=== PATIENT | male | born 1985 | race Caucasian/White ===

== ENCOUNTER 2017-06-04 04:20 | Emergency (ER) | payer SELFPAY ==
[2017-06-04] MEDS ORDERED: IPRATROPIUM/ALBUTEROL 3 ML NEB INH STA (04:27)
[2017-06-04] MEDS ORDERED: predniSONE 20 MG TABLET PO STA (04:28)
--- NOTE | 2017-06-04 04:33 | ED Physician Documentation ---
PD HPI DYSPNEA - Stated complaint Stated Complaint: SOA - Chief complaint Chief Complaint: Resp - History obtained from History obtained from: Patient - History of Present Illness Timing - onset: How many days ago (3) Timing - onset during: Rest, Light activity Timing - details: Gradual onset, Still present Inciting event(s): Out of meds Improved by: O2, Inhaler/neb Associated symptoms: Wheezing. No: Fever, Cough Similar symptoms before: Work up / diagnostics Recently seen: Not recently seen - Additional information Additional information: Patient is a 31 year old male with a history of asthma who is presenting to the emergency department for shortness of breath and wheezing. patient reports that he hadn't had to use his inhaler much the last couple of years but over the last week he has been using it every day. 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 Patient tried some albuterol nebulizers with little relief. Review of Systems Constitutional: denies: Fever, Chills Eyes: reports: Reviewed and negative Ears: reports: Reviewed and negative Nose: denies: Rhinorrhea / runny nose, Congestion Cardiac: denies: Chest pain / pressure Respiratory: reports: Dyspnea, Wheezing. denies: Cough : reports: Reviewed and negative Skin: reports: Reviewed and negative Musculoskeletal: reports: Reviewed and negative Neurologic: reports: Reviewed and negative Immunocompromised: denies: Immunocompromised PD PAST MEDICAL HISTORY - Present Medications Home Medications: Ambulatory Orders Medication Instructions Recorded Confirmed Albuterol 2.5 mg INH Q4H PRN #30 neb 06/04/17 Albuterol Sulf [Ventolin Hfa 2 puffs INH Q4HR PRN #1 inhaler 06/04/17 Inhaler] Albuterol Sulfate [Proair Hfa 2 puffs IH Q3HR PRN 06/04/17 06/04/17 Inhaler] Mometasone/Formoterol [Dulera 100 2 puffs IH DAILY 06/04/17 06/04/17 Mcg/5 Mcg Inhaler] Omeprazole 20 mg PO DAILY 06/04/17 06/04/17 predniSONE [Prednisone] 40 mg PO DAILY 5 Days tablet 06/04/17 - Allergies Allergies/Adverse Reactions: Allergies Allergy/AdvReac Type Severity Reaction Status Date / Time No Known Drug Allergies Allergy Verified 06/04/17 04:26 PD ED PE NORMAL - Vitals Vital signs reviewed: Yes - General General: Alert and oriented X 3, Well developed/nourished - HEENT HEENT: Atraumatic, Moist mucous membranes - Neck Neck: Supple, no meningeal sign, No JVD - Cardiac Cardiac: RRR, No murmur - Abdomen Abdomen: Soft, Non distended - Derm Derm: Normal color, Warm and dry - Extremities Extremities: No deformity, No edema, No calf tenderness / cord - Neuro Neuro: Alert and oriented X 3, No motor deficit, Normal speech - Psych Psych: Normal mood PD ED PE EXPANDED - Respiratory Respiratory: Labored, Wheezing, Right upper lobe, Right middle lobe, Right lower lobe, Left upper lobe, Left lower lobe Results - Vitals Vitals: Vital Signs - 24 hr 06/04/17 06/04/17 06/04/17 04:20 04:51 05:20 Temperature 36.5 C Heart Rate 75 75 81 Respiratory 20 20 17 Rate Blood Pressure 135/93 H 114/85 H O2 Saturation 95 98 Oxygen O2 Source Room air PD MEDICAL DECISION MAKING - ED course Complexity details: reviewed old records, reviewed results, re-evaluated patient , considered differential, d/w patient ED course: Patient was seen and examined at bedside. Patient had bilateral wheezing but was not hypoxic. patient was treated with duonembs and prednisone. Upon re- evaluation patient was feeling better. Patient was given 3 nebs to go home with. patient required no further inpatient work up and was stable for discharge with outpatient follow up. Departure - Departure Disposition: Home, Self Care Clinical Impression: Asthma Condition: Good Instructions: Asthma Dc Follow-Up: primary,care provider [Other] - Within 3 Days Prescriptions: Albuterol Sulf [Ventolin Hfa Inhaler] 2 puffs INH Q4HR PRN #1 inhaler PRN Reason: Wheezing Albuterol 2.5 mg INH Q4H PRN #30 neb PRN Reason: Wheezing predniSONE [Prednisone] 40 mg PO DAILY 5 Days tablet Comments: Your symptoms today are being caused by an asthma exacerbation. You have been prescribed albuterol and steroids. You should try wearing masks at work if you are cleaning. If your attacks become more frequent you should follow up wiht your doctor. You may return to the emergency department at any time for new, worsening or uncontrollable symptoms. Forms: Activity restrictions
[2017-06-04] MEDS ORDERED: IPRATROPIUM/ALBUTEROL 3 ML NEB INH ONE (04:56)
[2017-06-04 05:21] VITALS: BP 114/85
[2017-06-04] MEDS ORDERED: ALBUTEROL NEB 2.5 MG/3 ML INH STA (05:27)
== END 2017-06-04 05:40 | disposition home or self-care (01) ==
LOC: ED 04:20
DX: J45.901 Unspecified asthma with (acute) exacerbation (principal)
CPT/HCPCS: 94640; 99283; J7512; J7613; J7620

== ENCOUNTER 2018-03-08 09:19 | Outpatient (CLI) | payer SELFPAY | END 2018-03-08 09:20 | disposition home or self-care (01) | LOC: LAB 09:19 | DX: Z02.81 Encounter for paternity testing (principal) ==

== ENCOUNTER 2020-09-22 14:51 | Emergency (ER) | payer OTHER ==
--- NOTE | 2020-09-22 15:39 | XRAY Report ---
PROCEDURE: Shoulder 2 View RT INDICATIONS: shoulder pain TECHNIQUE: 2 views of the shoulder were acquired. COMPARISON: None. FINDINGS: Bones: No fractures or dislocations. No suspicious bony lesions. Visualized ribs appear intact. Sternotomy wires are partially seen. Soft tissues: No suspicious soft tissue calcifications. The visualized lung demonstrates a normal a ppearance. IMPRESSION: Unremarkable shoulder plain films. If it would be helpful for clinical management decision making, please consider a dedicated, schedule d shoulder MRI for further evaluation (assuming that there is no contraindication). Reviewed by: Jack Hicks MD on 09/22/2020 2:38 PM GRANT Approved by: Jack Hicks MD on 09/22/2020 2:38 PM GRANT Station ID: [id number]
--- NOTE | 2020-09-22 16:01 | ED Physician Documentation ---
History of Present Illness - Stated complaint Stated Complaint: RT ARM PX - Chief complaint Chief Complaint: Ext Problem - History obtained from History obtained from: Patient - Additonal information Additional information: 35-year-old man presents with right arm pain sudden in onset when bowling yesterday. He states that his arm is aching, with associated mild swelling, pain radiating to the shoulder and forearm, worse with ranging the shoulder, arm, and rest, constant, mild at rest. No other injury. Patient has not recently been on ciprofloxacin or other fluoroquinolones. He is previously healthy. Review of Systems Skin: denies: Lesions, Abrasion (s), Laceration (s) Musculoskeletal: reports: Extremity pain Neurologic: denies: Focal weakness, Numbness PD PAST MEDICAL HISTORY - Past Medical History Past Medical History: Yes Respiratory: Asthma Endocrine/Autoimmune: Other - Past Surgical History Past Surgical History: No - Present Medications Home Medications: Ambulatory Orders Medication Instructions Recorded Confirmed Albuterol 2.5 mg INH Q4H PRN #30 neb 06/04/17 09/22/20 Albuterol Sulf [Ventolin Hfa 2 puffs INH Q4HR PRN #1 inhaler 06/04/17 09/22/20 Inhaler] Albuterol Sulfate [Proair Hfa 2 puffs IH Q3HR PRN 06/04/17 09/22/20 Inhaler] - Allergies Allergies/Adverse Reactions: Allergies Allergy/AdvReac Type Severity Reaction Status Date / Time No Known Drug Allergies Allergy Verified 09/22/20 14:54 - Social History Does the pt smoke?: No Smoking Status: Never smoker Does the pt drink ETOH?: Yes Does the pt have substance abuse?: Yes Substance Use and Type: Marijuana - Immunizations Immunizations are current?: Yes - POLST Patient has POLST: No PD ED PE NORMAL - Vitals Vital signs reviewed: Yes - General General: Alert and oriented X 3, No acute distress, Well developed/nourished - HEENT HEENT: Atraumatic, PERRL, EOMI - Extremities Extremities: Other (Right distal biceps tendon tender to palpation with mild deformity compared to the left. No discernible swelling on the right side compared to the left. Patient is nontender with passive range of motion of the shoulder, elbow, and wrist. 2+ BL radial pulses. ) - Neuro Neuro: Alert and oriented X 3 - Psych Psych: Normal mood, Normal affect Results - Vitals Vitals: Vital Signs - 24 hr 09/22/20 14:54 Temperature 36.5 C Heart Rate 70 Respiratory 16 Rate Blood Pressure 120/82 H O2 Saturation 98 Oxygen O2 Source Room air PD MEDICAL DECISION MAKING - ED course ED course: 35-year-old man presents with partial tear of the right biceps tendon. We placed this sling, provided with Figueroa wrap, and gave education on conservative measures including ice, elevation, and rest. He will need to follow-up with Dr. Raza tomorrow for orthopedics evaluation. Return precautions given. Departure - Departure Disposition: Home, Self Care Clinical Impression: Biceps tendon tear Condition: Good Instructions: ED RICE Follow-Up: Tello Raza MD [Provider Admit Priv/Credential] - Comments: You are seen in the emergency department for a biceps tendon injury. You should call Dr. Raza, our orthopedist tomorrow for early surgical clinic follow-up. This injury will likely heal with rest, ice, and use of a sling, but you definitely need surgical evaluation and close follow-up. Return to the emergency department if you have any new or worsening symptoms or other concerns. Forms: Activity restrictions
[2020-09-22 16:22] VITALS: BP 120/83
== END 2020-09-22 16:42 | disposition home or self-care (01) ==
LOC: ED 14:51
DX: S46.211A Strain of muscle, fascia and tendon of other parts of biceps, right arm, initial encounter (principal); X50.9XXA Other and unspecified overexertion or strenuous movements or postures, initial encounter; Y93.54 Activity, bowling; Y92.39 Other specified sports and athletic area as the place of occurrence of the external cause
CPT/HCPCS: 99282; 99283

== ENCOUNTER 2020-10-01 08:23 | Outpatient (CLI) | payer OTHER ==
--- NOTE | 2020-10-01 09:15 | XRAY Report ---
PROCEDURE: Elbow 3 View RT INDICATIONS: INJURY OF MUSCLE, FASCIA AND TENDON OF OTHER PARTS OF R BICEP TECHNIQUE: 3 views of the elbow were acquired. COMPARISON: None FINDINGS: Bones: No fractures or dislocations. No suspicious bony lesions. Soft tissues: No elbow joint effusion. No suspicious soft tissue calcifications. IMPRESSION: No visualized acute fracture or dislocation. However, occult injury cannot be excluded. Recommend tino rt interval imaging follow-up in 7-10 days as clinically indicated for additional evaluation. Reviewed by: April Barker MD on 10/01/2020 9:14 AM PDT Approved by: April Barker MD on 10/01/2020 9:14 AM PDT Station ID: [id number]
== END 2020-10-01 23:59 | disposition home or self-care (01) ==
LOC: DI.N 08:23
PROVIDERS: ATTEND Orthopaedic Surgery
DX: S46.291A Other injury of muscle, fascia and tendon of other parts of biceps, right arm, initial encounter (principal)

== ENCOUNTER 2020-11-24 02:08 | Outpatient (CLI) | payer OTHER | END 2020-11-24 23:59 | disposition critical access hospital (66) | LOC: EMS 02:08 | DX: S01.01XA Laceration without foreign body of scalp, initial encounter (principal); R22.0 Localized swelling, mass and lump, head; Y04.2XXA Assault by strike against or bumped into by another person, initial encounter; Y93.89 Activity, other specified | CPT/HCPCS: A0425; A0429 ==

== ENCOUNTER 2020-11-24 02:41 | Emergency (ER) | payer OTHER ==
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
[2020-11-24] MEDS ORDERED: BUFFERED LIDOCAINE 10 ML SYRINGE SUBQ STA (04:04)
[2020-11-24] MEDS ORDERED: LIDOCAINE 2%-EPI 1:100000 20 ML MDV ONE (05:07)
[2020-11-24 05:19] VITALS: BP 140/91
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
== END 2020-11-24 05:18 | disposition home or self-care (01) ==
LOC: EDUNIT# → ED 02:41
DX: S09.90XA Unspecified injury of head, initial encounter (principal); S01.01XA Laceration without foreign body of scalp, initial encounter; S01.81XA Laceration without foreign body of other part of head, initial encounter; Y04.2XXA Assault by strike against or bumped into by another person, initial encounter; Y92.039 Unspecified place in apartment as the place of occurrence of the external cause
CPT/HCPCS: 12002; 12011; 99282; 99284

== ENCOUNTER 2020-12-17 09:59 | Emergency (ER) | payer OTHER ==
[2020-12-17] MEDS ORDERED: AMPICILLIN/SULBACTAM 3 GM in SODIUM CHLORIDE 0.9% MINIBAG 100 ML IV STA (10:32)
[2020-12-17] MEDS ORDERED: DEXAMETHASONE 10 MG/ML VIAL IVP STA (10:32)
[2020-12-17] MEDS ORDERED: SODIUM CHLORIDE 0.9% 1,000 ML IV STA (10:32)
[2020-12-17] MEDS ORDERED: KETOROLAC 15 MG/ML VIAL IVP STA (10:32)
--- NOTE | 2020-12-17 10:33 | ED Physician Documentation ---
PD HPI HEENT - Stated complaint Stated Complaint: SORE THROAT - Chief complaint Chief Complaint: Heent - History obtained from History obtained from: Patient - Additional information Additional information: 35-year-old gentleman with history of myasthenia gravis as a teen status post remote thymectomy with resolution presents with 3 days of worsening sore throat especially on the left and voice changes since yesterday. Not associated with fever Review of Systems Constitutional: denies: Fever, Chills Nose: reports: Reviewed and negative Throat: reports: Reviewed and negative Cardiac: reports: Reviewed and negative PD PAST MEDICAL HISTORY - Past Medical History Respiratory: Asthma Endocrine/Autoimmune: Other - Past Surgical History Past Surgical History: No - Present Medications Home Medications: Ambulatory Orders Medication Instructions Recorded Confirmed Albuterol 2.5 mg INH Q4H PRN #30 neb 06/04/17 11/24/20 Albuterol Sulf [Ventolin Hfa 2 puffs INH Q4HR PRN #1 inhaler 06/04/17 11/24/20 Inhaler] Albuterol Sulfate [Proair Hfa 2 puffs IH Q3HR PRN 06/04/17 11/24/20 Inhaler] Amox/Clav 875/125 [Augmentin] 1 each PO Q12H #20 tablet 12/17/20 HYDROcod/ACETAM 5/325 [[place] 5/325] 1 - 2 tab PO Q6H PRN #15 tablet 12/17/20 predniSONE [Deltasone] 20 mg PO [id number] #21 tab 12/17/20 - Allergies Allergies/Adverse Reactions: Allergies Allergy/AdvReac Type Severity Reaction Status Date / Time No Known Drug Allergies Allergy Verified 12/17/20 10:21 - Social History Does the pt smoke?: No Smoking Status: Never smoker Does the pt drink ETOH?: Yes Does the pt have substance abuse?: Yes - Immunizations Immunizations are current?: Yes - POLST Patient has POLST: No PD ED PE NORMAL - Vitals Vital signs reviewed: Yes - General General: Alert and oriented X 3, No acute distress - HEENT HEENT: Other (Slightly muffled hot potato voice with a deviating peritonsillar abscess on the left.) - Neck Neck: Supple, no meningeal sign, No bony TTP - Extremities Extremities: No edema, No calf tenderness / cord - Neuro Neuro: Alert and oriented X 3 - Psych Psych: Normal mood, Normal affect Results - Vitals Vitals: Vital Signs - 24 hr 12/17/20 12/17/20 12/17/20 10:18 11:10 11:45 Temperature 37.0 C Heart Rate 95 75 81 Respiratory 20 16 16 Rate Blood Pressure 137/102 H 119/86 H 116/75 O2 Saturation 98 98 99 Oxygen O2 Source Room air - Labs Labs: Laboratory Tests 12/17/20 12/17/20 10:30 10:30 WBC 10.7 RBC 4.93 Hgb 16.4 Hct 47.0 MCV 95.3 H MCH 33.3 H MCHC 34.9 RDW 12.3 Plt Count 252 MPV 8.7 Neut # (Auto) 8.7 H Lymph # (Auto) 0.8 L Moca # (Auto) 1.1 H Eos # (Auto) 0.1 Baso # (Auto) 0.0 Absolute Nucleated RBC 0.00 Nucleated RBC % 0.0 Sodium 137 Potassium 4.3 Chloride 101 Carbon Dioxide 26 Anion Gap 10.0 BUN 21 H Creatinine 1.1 Estimated GFR (MDRD) 76 L Glucose 105 H Calcium 9.5 Procedures - Abscess I&D (location) Left peritonsillar abscess Preparation: Other (Benzocaine spray and buffered lidocaine) Incision: Needle aspiration. No: Purulent drainage Other: Pt tolerated well PD MEDICAL DECISION MAKING - ED course ED course: 35-year-old gentleman with peritonsillar abscess. Needle aspiration was done albeit really not much purulent material returned. Feeling better after meds here. Departure - Departure Disposition: 01 Home, Self Care Clinical Impression: Peritonsillar abscess Condition: Good Record reviewed to determine appropriate education?: Yes Instructions: ED Peritonsillar Abscess Prescriptions: Amox/Clav 875/125 [Augmentin] 1 each PO Q12H #20 tablet predniSONE [Deltasone] 20 mg PO [id number] #21 tab HYDROcod/ACETAM 5/325 [[place] 5/325] 1 - 2 tab PO Q6H PRN #15 tablet PRN Reason: Pain Comments: If not completely better over the next couple of days you should follow-up with an metal off bearer. The closest to you is in [place], the phone number is . Return for new or worsening symptoms. I am prescribing a short course of narcotic pain medication for you. These are potentially dangerous and addictive medications that should be used carefully. These medications may constipate you. Take an trky-aff-brfdwfe stool softener (docusate) twice daily with plenty of water while taking these medications. If you go 24 hours without a bowel movement, take qhya-[id number] miralax, per package instructions. Do not drink or drive while taking these medications. If you received narcotic or sedating medications while in the emergency department, do not drive for 24 hours. Store this medication in a safe, secure place and out of reach of children. It is a violation of federal law to give or sell this medication to another person or to use in a manner other than prescribed. The ED will not refill narcotic prescriptions, including prescriptions lost or stolen. To dispose of unwanted medications: 1. [facility] at [address] in [place] has a medication drop box. They accept prescription medications (in pill form) Thursday through Thursday 9:00 a.m. to 5:00 p.m. 2. The [facility] accepts prescription medications (in pill form only) for disposal year round. Call for more information. 3. Contact the [facility] for the next [facility] sponsored prescription drug collection event. , [phone], or [phone]; Note that many narcotic pain relievers also contain Tylenol/acetaminophen. Please ensure that your total dose of acetaminophen from all sources does not exceed 3 g (3000 mg) per day.
[2020-12-17 10:38] LABS: BASOPHILS % (AUTO) 0.3 %; EOSINOPHILS # (AUTO) 0.1 10^3/uL (0.0-0.7); EOSINOPHILS % (AUTO) 1.3 %; HGB - HEMOGLOBIN 16.4 g/dL (14.0-18.0); LYMPHOCYTES # (AUTO) 0.8 10^3/uL (1.5-3.5); LYMPHOCYTES % (AUTO) 7.1 %; MEAN CORPUSCULAR HEMOGLOBIN 33.3 pg (27.0-31.0); MEAN CORPUSCULAR HGB CONC 34.9 g/dL (32.0-36.0); MEAN CORPUSCULAR VOLUME 95.3 fL (80.0-94.0); MEAN PLATELET VOLUME 8.7 fL (7.4-11.4); MONOCYTES # (AUTO) 1.1 10^3/uL (0.0-1.0); MONOCYTES % (AUTO) 10.2 %; NEUTROPHILS # (AUTO) 8.7 10^3/uL (1.5-6.6); NEUTROPHILS % (AUTO) 80.6 %; PLT - PLATELET COUNT 252 10^3/uL (130-450); RED BLOOD COUNT 4.93 10^6/uL (4.70-6.10); RED CELL DISTRIBUTION WIDTH 12.3 % (12.0-15.0); WHITE BLOOD COUNT 10.7 x10^3/uL (4.8-10.8)
[2020-12-17 10:47] LABS: CALCIUM 9.5 mg/dL (8.5-10.3); CREATININE 1.1 mg/dL (0.6-1.2); POTASSIUM 4.3 mmol/L (3.5-5.0)
[2020-12-17] MEDS ORDERED: BENZOCAINE SPRAY MM STA (11:21)
[2020-12-17 12:45] VITALS: BP 106/70
== END 2020-12-17 12:45 | disposition home or self-care (01) ==
LOC: ED 09:59
DX: J36 Peritonsillar abscess (principal)
CPT/HCPCS: 36415; 42700; 80048; 85025; 96365; 96375; 99283; 99284; A9270

== ENCOUNTER 2022-01-25 11:42 | Emergency (ER) | payer MEDICAID ==
[2022-01-25 11:49] VITALS: BP 133/91
--- NOTE | 2022-01-25 12:10 | ED Physician Documentation ---
PD HPI DYSPNEA - Stated complaint Stated Complaint: HARD BREATHING - Chief complaint Chief Complaint: Resp - History obtained from History obtained from: Patient - History of Present Illness Timing - onset: How many days ago (1-2) Timing - onset during: Light activity Timing - details: Gradual onset (his asthma is acting worse with current smoky conditions in atmosphere. Has run out of meds. No local PMD as yet.), Still present Inciting event(s): Out of meds, Exposure (ie smoke) Improved by: Rest Worsened by: Exertion, Allergens, Smoke Associated symptoms: Wheezing. No: Fever, Cough, Chest pain / discomfort, Bilateral edema Similar symptoms before: Diagnosis (asthma) Recently seen: Not recently seen Review of Systems Constitutional: denies: Fever, Chills Nose: denies: Rhinorrhea / runny nose, Congestion Throat: denies: Sore throat Respiratory: denies: Cough GI: denies: Vomiting, Diarrhea PD PAST MEDICAL HISTORY - Past Medical History Respiratory: Asthma Endocrine/Autoimmune: Other - Past Surgical History Past Surgical History: No - Present Medications Home Medications: Ambulatory Orders Medication Instructions Recorded Confirmed Albuterol 2.5 mg INH Q4H PRN #30 neb 06/04/17 11/24/20 Albuterol Sulf [Ventolin Hfa 2 puffs INH Q4HR PRN #1 inhaler 06/04/17 11/24/20 Inhaler] Albuterol Sulfate [Proair Hfa 2 puffs IH Q3HR PRN 06/04/17 11/24/20 Inhaler] Amox/Clav 875/125 [Augmentin] 1 each PO Q12H #20 tablet 12/17/20 HYDROcod/ACETAM 5/325 [[place] 5/325] 1 - 2 tab PO Q6H PRN #15 tablet 12/17/20 predniSONE [Deltasone] 20 mg PO [id number] #21 tab 12/17/20 Albuterol Sulfate [Proair Hfa 1 - 2 puffs INH Q4H PRN #1 gm 12/19/21 Inhaler] Cyclobenzaprine [Flexeril] 10 mg PO TID PRN #20 tablet 01/02/22 Naproxen 250 mg PO BID PRN #15 tablet 01/02/22 methylPREDNISolone [Medrol Dose 1 each PO .PACKAGEINSTRUCTIONS 6 01/02/22 Pack] Days #1 each Albuterol 2.5 mg INH Q4H PRN #30 ml 01/25/22 Albuterol Sulf [Ventolin Hfa 1 - 2 puffs INH Q4HR PRN #1 gm 01/25/22 Inhaler] predniSONE [Deltasone] 20 mg PO DAILY 10 Days #10 tablet 01/25/22 - Allergies Allergies/Adverse Reactions: Allergies Allergy/AdvReac Type Severity Reaction Status Date / Time No Known Drug Allergies Allergy Verified 01/25/22 11:50 - Social History Does the pt smoke?: No Smoking Status: Never smoker Does the pt drink ETOH?: Yes Does the pt have substance abuse?: Yes - Immunizations Immunizations are current?: Yes - POLST Patient has POLST: No PD ED PE NORMAL - Vitals Vital signs reviewed: Yes - General General: Alert and oriented X 3, No acute distress, Well developed/nourished - HEENT HEENT: Moist mucous membranes, Pharynx benign - Neck Neck: Supple, no meningeal sign, No adenopathy - Cardiac Cardiac: RRR, No murmur - Respiratory Respiratory: No respiratory distress. No: Clear bilaterally (no congestion. Has diffuse exp wheezing without prolonged exp phase. ) Results - Vitals Vitals: Vital Signs - 24 hr 01/25/22 01/25/22 11:45 12:38 Temperature 36.2 C L Heart Rate 68 74 Respiratory 18 18 Rate Blood Pressure 133/91 H O2 Saturation 98 Oxygen O2 Source Room air PD MEDICAL DECISION MAKING - ED course Complexity details: considered differential, d/w patient Departure - Departure Disposition: 01 Home, Self Care Clinical Impression: Exacerbation of asthma Qualifiers: Asthma severity: mild Asthma persistence: intermittent Qualified Code(s): J45.21 - Mild intermittent asthma with (acute) exacerbation Condition: Stable Record reviewed to determine appropriate education?: Yes Instructions: ED Reactive Airway Disease Follow-Up: Primary/[facility] [place] [Provider Group] Prescriptions: Albuterol Sulf [Ventolin Hfa Inhaler] 1 - 2 puffs INH Q4HR PRN #1 gm PRN Reason: Shortness Of Air/Wheezing Albuterol 2.5 mg INH Q4H PRN #30 ml PRN Reason: Wheezing predniSONE [Deltasone] 20 mg PO DAILY 10 Days #10 tablet Comments: Use albuterol nebulizer or inhaler 4 times daily for the next several days to week. Then as needed. I would suggest steroids of prednisone 20 mg daily for 5 days more. Stay well-hydrated. You may consider a particulate filter or mask if you are working outdoors over the next few days. I transmitted prescriptions to [facility] in [place]. Follow-up/obtain primary care at routine new appointment. Discharge Date/Time: 01/25/22 12:59
[2022-01-25] MEDS: ALBUTEROL NEB 2.5 MG/3 ML INH STA (12:36)
[2022-01-25] MEDS: DEXAMETHASONE 10 MG/ML VIAL PO STA (12:36)
[2022-01-25] MEDS: CHERRY SYRUP 10 ML UDC PO ONE (12:36)
== END 2022-01-25 12:59 | disposition home or self-care (01) ==
LOC: ED 11:42
DX: J45.21 Mild intermittent asthma with (acute) exacerbation (principal)
CPT/HCPCS: 94640; 94664; 99283; 99284; A9270

== ENCOUNTER 2022-10-26 02:31 | Emergency (ER) | payer MEDICAID ==
--- NOTE | 2022-10-26 02:42 | ED Physician Documentation ---
History of Present Illness - Stated complaint Stated Complaint: CONFUSED/NUMBNESS - Additonal information Additional information: Patient 37-year-old male presenting to the emergency department with chief complaint of anxiety. Reports feels numb all over. States drank half a bottle of vodka tonight as well as a THC infused shot provided by a neighbor. Reports he regularly drinks half a bottle of vodka or more daily but denies regular use of marijuana products. He denies chest pain or shortness of breath. Review of Systems Constitutional: denies: Fever Eyes: denies: Loss of vision Ears: denies: Loss of hearing Nose: denies: Rhinorrhea / runny nose Throat: denies: Dental pain / toothache Cardiac: denies: Chest pain / pressure Respiratory: denies: Dyspnea PD PAST MEDICAL HISTORY - Past Medical History Respiratory: Asthma Endocrine/Autoimmune: Other - Past Surgical History Past Surgical History: No - Present Medications Home Medications: Ambulatory Orders Medication Instructions Recorded Confirmed Albuterol 2.5 mg INH Q4H PRN #30 neb 06/04/17 11/24/20 Albuterol Sulf [Ventolin Hfa 2 puffs INH Q4HR PRN #1 inhaler 06/04/17 11/24/20 Inhaler] Albuterol Sulfate [Proair Hfa 2 puffs IH Q3HR PRN 06/04/17 11/24/20 Inhaler] Amox/Clav 875/125 [Augmentin] 1 each PO Q12H #20 tablet 12/17/20 HYDROcod/ACETAM 5/325 [[place] 5/325] 1 - 2 tab PO Q6H PRN #15 tablet 12/17/20 predniSONE [Deltasone] 20 mg PO [id number] #21 tab 12/17/20 Albuterol Sulfate [Proair Hfa 1 - 2 puffs INH Q4H PRN #1 gm 12/19/21 Inhaler] Cyclobenzaprine [Flexeril] 10 mg PO TID PRN #20 tablet 01/02/22 Naproxen 250 mg PO BID PRN #15 tablet 01/02/22 methylPREDNISolone [Medrol Dose 1 each PO .PACKAGEINSTRUCTIONS 6 01/02/22 Pack] Days #1 each Albuterol 2.5 mg INH Q4H PRN #30 ml 01/25/22 Albuterol Sulf [Ventolin Hfa 1 - 2 puffs INH Q4HR PRN #1 gm 01/25/22 Inhaler] predniSONE [Deltasone] 20 mg PO DAILY 10 Days #10 tablet 01/25/22 - Allergies Allergies/Adverse Reactions: Allergies Allergy/AdvReac Type Severity Reaction Status Date / Time No Known Drug Allergies Allergy Verified 01/25/22 11:50 - Social History Does the pt smoke?: No Smoking Status: Never smoker Does the pt drink ETOH?: Yes Does the pt have substance abuse?: Yes - Immunizations Immunizations are current?: Yes - POLST Patient has POLST: No PD ED PE NORMAL - Vitals Vital signs reviewed: Yes (Tachycardia) - General General: Alert and oriented X 3, No acute distress - HEENT HEENT: Atraumatic, Other (Conjunctival injections) - Neck Neck: Supple, no meningeal sign - Cardiac Cardiac: RRR - Respiratory Respiratory: No respiratory distress - Abdomen Abdomen: Normal bowel sounds - Male Male : Deferred - Derm Derm: Normal color - Extremities Extremities: No deformity - Neuro Neuro: Alert and oriented X 3, button grader 2-12 intact, No motor deficit, Normal speech Results - Vitals Vitals: Vital Signs - 24 hr 10/26/22 02:39 Temperature 37.0 C Heart Rate 109 H Respiratory 19 Rate Blood Pressure 113/75 O2 Saturation 96 Oxygen O2 Source Room air PD Medical Decision Making - ED course Complexity details: re-evaluated patient, d/w patient ED course: Patient presents to the emergency department with chief complaint of anxiety and numbness. He endorse for drinking half a bottle of vodka as well as taking a tetrahydrocannabinol infused alcoholic beverage earlier this evening. He states he does not regularly use marijuana. He endorsed for an abnormal sensorium including total body numbness. Had a low level tachycardia but with his with his hemodynamically stable. No focal or lateralizing neurologic deficits. He had a insulation inspector at bedside who was not demonstrating any signs of intoxication. My initial plan was for lab w ork as well as an EKG however almost immediately upon arrival to the emergency department he reported to nursing staff that he intends to leave. Upon my reevaluation he was dressed and standing at bedside. He was otherwise alert, orientated and demonstrated decisional capacity. He was able to ambulate from the department without difficulty. Was encouraged to return for new or worsening symptoms. Departure - Departure Disposition: 01 Home, Self Care Clinical Impression: Alcohol intoxication, Marijuana use Instructions: ED Alcohol Intoxication Comments: Thank you for allowing us the opportunity to provide your care here at [facility] this evening. You are deciding to leave before you have had a chance to do any blood tests or other forms of evaluation. I would like to encourage you to work towards abstinence of alcohol. Also encourage you to not take marijuana products in the future as these seem to react poorly to these things. I wanted to know that if you ever decide that you want further care or if you are having new or worsening symptoms you are welcome to return.
[2022-10-26 02:46] VITALS: BP 113/75
== END 2022-10-26 03:03 | disposition home or self-care (01) ==
LOC: ED 02:31
DX: F10.129 Alcohol abuse with intoxication, unspecified (principal)
CPT/HCPCS: 80053; 80320; 83690; 83735; 85025; 99283; 99284